=== PATIENT | female | born 1960 | race Caucasian/White ===

== ENCOUNTER → 2017-01-09 | Outpatient (CLI) | payer BC ==
[~2017-01-09] MED LIST: AMLO-110 PO; ATOR-22 PO; CHOL100010 PO; GLC/500 PO; LEVO25TA PO; LORA-741 PO; METO50TA7 PO; RAMI5CAP PO
[2017-01-09 12:23] LABS: HEMATOCRIT 47.7 % (37-47); MEAN CELL VOLUME 91.7 fL (80-100); MEAN CORPUSCULAR HEMOGLOBIN 30.8 pg (25-34); MEAN CORPUSCULAR HGB CONC 33.5 g/dl (32-36); PLATELET COUNT 205 K/uL (130-400); WHITE BLOOD COUNT 13.94 K/uL (4.8-10.8)
[2017-01-09 12:30] LABS: PARTIAL THROMBOPLASTIN RATIO 1.1; PROTHROMBIN TIME (PATIENT) 10.3 SECONDS (9.0-12.0)
[2017-01-09 12:46] LABS: POTASSIUM 4.2 mmol/L (3.5-5.1)
== END | disposition home or self-care (01) ==
LOC: C.LAB 10:51
PROVIDERS: ATTEND Physician Assistant
DX: Z01.818 Encounter for other preprocedural examination (principal)

== ENCOUNTER → 2017-01-14 | Outpatient (CLI) | payer BC ==
[2017-01-14 12:41] LABS: BASO % 0.4 %; BASO ABS # 0.05 K/uL (0-0.2); COMPLETE YES; EOS % 3.1 %; HEMATOCRIT 48.5 % (37-47); IG% 0.4 %; LYMPH % 32.6 %; LYMPH ABS # 4.13 K/uL (1.2-3.4); MEAN CELL VOLUME 89.6 fL (80-100); MEAN CORPUSCULAR HEMOGLOBIN 29.9 pg (25-34); MEAN CORPUSCULAR HGB CONC 33.4 g/dl (32-36); MEAN PLATELET VOLUME 10.9 fL (7.4-10.4); MONO % 7.6 %; NEUT % 55.9 %; PLATELET COUNT 196 K/uL (130-400); RED BLOOD COUNT 5.41 M/uL (4.2-5.4); WHITE BLOOD COUNT 12.68 K/uL (4.8-10.8)
== END | disposition home or self-care (01) ==
LOC: C.LAB 10:09
PROVIDERS: ATTEND Physician Assistant
DX: D17.30 Benign lipomatous neoplasm of skin and subcutaneous tissue of unspecified sites (principal); D17.1 Benign lipomatous neoplasm of skin and subcutaneous tissue of trunk

== ENCOUNTER → 2017-01-22 | Day surgery (SDC) | payer BC ==
[2017-01-10 15:20] VITALS: Ht 170.2 cm; Wt 100.0 kg
[~2017-01-22] VITALS: Ht 170.2 cm; Wt 100.0 kg
[~2017-01-22] MED LIST changes: +ACETAMINOPHEN 325 MG TAB PO PRN; +ACETAMINOPHEN IV 100 ML IV PRN; +ACETAMINOPHEN IV 650 MG in EMPTY BAG 0 ML IV PRN; +ATROPINE SULFATE 0.1 MG/ML 5ML SYR IV PRN; +BACITRACIN OP OINT 3.5 GM TUBE ONE; +CEFAZOLIN 2000 MG/60 ML D5W IV SCH; +DEXAMETHASONE SOD INJ 4 MG/ML VIAL ONE; +EpHEDrine SULFATE INJ 50 MG/ML AMP IV PRN; +EpHEDrine SULFATE INJ 50 MG/ML AMP ONE; +FENTANYL CITRATE INJ 50 MCG/1 ML 2 ML VIAL ONE; +GLYCOPYRROLATE INJ 0.2 MG/ML VIAL ONE; +HYDROCODONE/ACETAMOPHEN 5/325MG TAB PO PRN; +LACTATED RINGER'S 1000ML 1,000 ML IV SCH; +LIDOCAINE HCL 2% 2 ML VIAL (20MG/ML) ONE; +METOCLOPRAMIDE HCL INJ 5 MG/ML 2 ML VIAL IV PRN; +MIDAZOLAM HCL 1 MG/ML 2ML VIAL ONE; +NEOSTIGMINE METHYLSULFATE 5 MG/5 ML SYR ONE; +ONDANSETRON INJ 2 MG/ML 2 ML VIAL IV PRN; +ONDANSETRON INJ 2 MG/ML 2 ML VIAL ONE; +PROPOFOL IV EMULSION 10 MG/ML 20 ML VIAL IV ONE; +SODIUM CHLORIDE 0.9% 1000ML 1,000 ML IV SCH; +WATER, STERILE FOR INJ 10 ML VIAL ONE
--- NOTE | 2017-01-22 08:29 | History & Physical Bridge - [place] ---
H&P Re-Evaluation Bridge Note: I have examined the patient, reviewed the History & Physical and in the interval since the performance of the History & Physical I have noted the following changes of clinical significance: No changes noted
[2017-01-22] MEDS: BUPIVACAINE 0.25% 2.5MG/ML PF 10 ML VIAL INFIL ONE ×2 (09:44→10:01)
[2017-01-22] MEDS: LIDOCAINE/EPINEPHRINE 1% INJ 50 ML VIAL ONE ×2 (09:44→10:02)
--- NOTE | 2017-01-22 09:47 | [facility] Post Operative Brief Note ---
Immediate Operative Summary Operative Date Jan 22, 2017. Pre-Operative Diagnosis Right Lower Back Soft Tissue Mass, Left Eye & Left Neck Skin Tags Post-Operative Diagnosis Same Procedure(s) Performed Right Lower Back Excision Of Soft Tissue Mass, Left Eye And Left Neck Excision Of Skin Tags Surgeon Dr. Bolviar Retail Manager In [employer] Surgeon(s) Kathie Green PA-C Estimated Blood Loss 5 ml Findings submuscular lipoma 8x3 cm right lower back Specimens A.) Right Lower Back Lipoma Drains 1/4 inch william Anesthesia general Complication(s) None Disposition Recovery Room / PACU
--- NOTE | 2017-01-22 10:07 | Discharge Instructions ---
Discharge Instructions Date of Service Jan 22, 2017. Admission Reason for Admission: Lipoma Of Skin And Subcutaneous Tissue Discharge Discharge Diagnosis / Problem: lipoma and inflamed skin tag Discharge Goals Goal(s): Decrease discomfort Activity Recommendations Activity Limitations: per Instructions/Follow-up section ACTIVITY RECOMMENDATIONS: __Normal activities _x_No bending, lifting or straining __No driving _x_Driving allowed when you are off pain medications _x_Walking permitted __You should have help at home for ___ days DRESSINGS: __No dressings required _x_Keep dressings dry/in place until first office visit. Expect a lot of drainage due to your drainage tube. Reinforce dressings as needed. __Remove dressings ___ and leave dressings off _x_Apply ice __2-3_ days __Remove dressings and reapply garment _x_Apply antibiotic ointment (Bacitracin, Neosporin, etc) to skin tag wounds 3- 4 times/day for 10 days. Special antibiotic ointment for your eye has been called into your pharmacy BATHING: _x_Keep dressings dry _x_Sponge bathing permitted __Showering permitted _x_No swimming, hot tubs or soaking in a tub MEDICATIONS: Resume previous medications unless instructed otherwise by your surgeon. _x_Do not use aspirin, Motrin, Advil or Ibuprofen as these may promote bleeding. Please use Tylenol. _x_Prescription(s) provided: pain medication provided at your last office visit , antibiotic ointment for your eye has been called into your pharmacy OTHER INSTRUCTIONS: __Record drain output 2-3 times per day SPECIAL CARE INSTRUCTIONS: * It is normal to have a mild fever after surgery. If your temperature is higher than 101.5 degrees F, please call the office at [phone]. * Constipation is a typical side effect of pain medication. An over-the- counter stool softener will help relieve this. * Leaking around surgical drains may occur and should not cause concern. Sometimes these drains become clogged. If this happens, remove the bulb and milk the clot out of the tube, then replace the bulb. * Drainage from wounds after liposuction is normal and should be expected. Garments will become soiled. You should protect furniture and bedding. This drainage should mostly subside within 2-3 days. Leave garments in place unless instructed to remove them. * If you have unusual drainage from a wound or are concerned you have an infection or have any questions or concerns, please call the office at [phone]. FOLLOW UP VISIT: If not already scheduled, please call the office, , when you return home after surgery to schedule an appointment to be seen in __2_ days. . Current Hospital Diet Patient's current hospital diet: Discharge Diet Recommended Diet: Regular Diet Procedures Procedures Performed: Right Lower Back Excision Of Soft Tissue Mass, Left Eye And Left Neck Excision Of Skin Tags Pending Studies Studies pending at discharge: yes List of pending studies: pathology Medical Emergencies . Who to Call and When: Medical Emergencies: If at any time you feel your situation is an emergency, please call 911 immediately. . Non-Emergent Contact Non-Emergency issues call your: Primary Care Provider, Surgeon . "Provider Documentation" section prepared by Princess Green. VTE Core Measure Inpt VTE Proph given/why not?: SCD's [place] Drug Monitoring Program Search Results: no issues identified
[2017-01-22] MEDS: FENTANYL CITRATE INJ 50 MCG/1 ML 2 ML VIAL IV PRN ×4 (10:34→10:55)
--- NOTE | 2017-01-22 11:50 | Anesthesia Progress Nt - [facility] ---
Anesthesia Post Op Note Date & Time Jan 22, 2017 at 11:48 Vital Signs Pain Intensity: 4 Vital Signs Past 12 Hours Date Time Temp Pulse Resp B/P Pulse Ox O2 Delivery O2 Flow Rate FiO2 01/22/17 11:34 37.0 67 16 97/62 94 Room Air 01/22/17 11:02 36.0 73 16 113/71 94 Room Air 01/22/17 11:02 75 18 01/22/17 11:02 75 18 91 01/22/17 11:00 113/71 01/22/17 10:57 80 19 95 01/22/17 10:57 80 19 01/22/17 10:55 114/65 01/22/17 10:55 109/61 01/22/17 10:53 108/72 01/22/17 10:52 73 15 01/22/17 10:52 74 15 98 01/22/17 10:50 111/73 01/22/17 10:47 77 15 01/22/17 10:47 77 15 97 01/22/17 10:45 111/71 01/22/17 10:42 66 16 98 01/22/17 10:42 66 16 01/22/17 10:40 118/66 01/22/17 10:37 67 16 01/22/17 10:37 68 16 99 01/22/17 10:35 106/58 01/22/17 10:32 71 21 01/22/17 10:32 72 21 99 01/22/17 10:30 110/74 01/22/17 10:27 69 23 17 10:27 69 23 98 17 10:26 127/65 01/22/17 10:22 72 20 97 18/17 10:22 73 20 18/17 10:20 109/65 01/22/17 10:17 70 19 01/22/17 10:17 69 19 99 18/17 10:16 105/68 01/22/17 10:12 75 21 18/17 10:12 75 21 99 18/17 10:11 92/58 17 10:07 76 21 99 18/17 10:07 76 21 01/22/17 10:06 108/64 17 10:02 76 19 01/22/17 10:02 37.0 74 16 106/70 98 Diffusion Mask 6 01/22/17 10:02 75 19 106/70 99 01/22/17 07:39 36.7 75 16 153/96 94 Room Air Notes Mental Status: alert / awake / arousable, participated in evaluation Pt Amnestic to Procedure: Yes Nausea / Vomiting: adequately controlled Pain: adequately controlled Airway Patency, RR, SpO2: stable & adequate BP & HR: stable & adequate Hydration State: stable & adequate Anesthetic Complications: no major complications apparent The patient is feeling well with no complaints other than minimal pain at surgical site.
[2017-01-22 12:14] VITALS: BP 111/73; PULSE 72; TEMP 37; O2SAT 95
--- NOTE | 2017-01-23 15:01 | OPERATIVE REPORT ---
DATE OF OPERATION: 01/22/2017 PREOPERATIVE DIAGNOSES: Right lower back soft tissue mass, left eye and left neck skin tags. POSTOPERATIVE DIAGNOSIS: Same. PROCEDURE: Excision of right lower back soft tissue mass, removal of skin tags left eye and left neck. SURGEON: Dr. Daisy Bolivar. TOBACCO STRIPPER HAND: Princess Green PA-C. ANESTHESIA: General. COMPLICATIONS: None. INDICATION FOR THE PROCEDURE: The patient is a 56-year-old female who presented to me with an enlarging soft tissue mass of her right lower back which was irritated by her bra strap. As it was enlarging, she desired excision. She also noted several skin tags, but had a couple in particular which were very irritated around her left eye and left neck, which she desired removal of. BRIEF DESCRIPTION OF THE PROCEDURE: The risks, benefits and alternatives of the procedure were explained to the patient who agreed and signed consent. She was identified and marked in the preoperative holding area. She was brought to the operating room where she was intubated and placed in the prone position. A transverse incision was made along her right back along the line from her bra, after the area was anesthetized with 1% lidocaine with epinephrine mixed with 0.25% Marcaine plain. The initial incision was made using a 15 blade scalpel and then deepened through dermis and into subcutaneous fat using electrocautery. Deep to subcutaneous fat, no lipoma was identified within the soft tissue. There was a soft tissue mass palpable deep to the latissimus muscle. Muscle splitting incision was made in order to identify the lipoma. A soft tissue mass consistent with lipoma was then encountered and was able to be bluntly dissected using finger dissection and curved hemostat. I feel it was able to be removed in its entirety. Hemostasis was achieved with electrocautery. The latissimus muscle was reapproximated using 2-0 Vicryl suture. Due to the large cavity, after removal of the lipoma, I did elect to place a quarter inch Mitra drain. The wound was reapproximated using 2-0 Vicryl deep dermal sutures and 3-0 Monocryl running subcuticular suture. The drain was brought out through the lateral aspect of the incision. Dermabond was applied to the incision. Dry dressing followed by a Tegaderm was placed. At this point, [facility]ine position. The small skin tags which had been previously identified were injected with 1% lidocaine with epinephrine. A curved iris scissor and forceps were used to remove a total of 4 skin tags, 2 from the left periorbital area and 2 from the left neck. The procedure was tolerated well. The patient was awakened and transferred to recovery room in satisfactory condition. Submuscular lipoma measured 8 x 3 cm. I attest to the content of the Intraoperative Record and any orders documented therein. Any exceptions are noted below. FELICITYD
== END | disposition home or self-care (01) ==
LOC: X.SURG 07:19
PROVIDERS: ATTEND Plastic Surgery
DX: D17.1 Benign lipomatous neoplasm of skin and subcutaneous tissue of trunk (principal); L91.8 Other hypertrophic disorders of the skin; G47.33 Obstructive sleep apnea (adult) (pediatric); I10 Essential (primary) hypertension; E11.9 Type 2 diabetes mellitus without complications; E78.5 Hyperlipidemia, unspecified; E03.9 Hypothyroidism, unspecified; Z98.818 Other dental procedure status; F41.9 Anxiety disorder, unspecified; Z87.891 Personal history of nicotine dependence; Z79.899 Other long term (current) drug therapy; Z90.49 Acquired absence of other specified parts of digestive tract; Z83.3 Family history of diabetes mellitus; Z82.3 Family history of stroke; Z82.49 Family history of ischemic heart disease and other diseases of the circulatory system